=== PATIENT | male | born 1985 | race African-American/Black ===

== ENCOUNTER 2017-01-18 23:50 | Emergency (ER) | payer MEDICAID ==
[2017-01-19 00:25] LABS: APPEARANCE CLEAR (CLEAR); BILIRUBIN NEGATIVE (NEGATIVE); COLOR YELLOW (YELLOW); GLUCOSE NEGATIVE (NEGATIVE); KETONE NEGATIVE (NEGATIVE); LEUKOCYTE ESTERASE NEGATIVE (NEGATIVE); NITRITE NEGATIVE (NEGATIVE); PROTEIN NEGATIVE (NEGATIVE); SPECIFIC GRAVITY 1.015 (1.005-1.020); UROBILINOGEN NORMAL (NORMAL)
[2017-01-19 00:30] LABS: BASOPHILS 0.5 % (0-2); EOSINOPHILS 2.8 % (0-7); HEMATOCRIT 39.2 % (42.0-54.0); HEMOGLOBIN 13.8 g/dL (13.5-17.5); IMMATURE GRANULOCYTES 0.2 % (0-5); LYMPHOCYTES 29.4 % (15-50); MCH 33.7 pg (26.0-34.0); MCHC 35.2 g/dL (31.0-37.0); MCV 95.6 fL (80.0-100.0); MEAN PLATELET VOLUME 8.9 fL (7.4-10.4); MONOCYTES 7.3 % (2-11); NEUTROPHILS 59.8 % (40-80); PLATELET COUNT 236 10x3/uL (130-400); RDW 12.9 % (11.5-14.5); WBC 8.1 10x3/uL (4.8-10.8)
[2017-01-19 00:43] LABS: ALBUMIN 3.7 g/dL (3.4-5.0); ALKALINE PHOSPHATASE 96 U/L (46-116); ALT (SGPT) 42 U/L (10-68); BILIRUBIN - TOTAL 0.46 mg/dL (0.2-1.3); CALC OSMOLALITY 282 mosm/kg (275-300); CALCIUM 8.8 mg/dL (8.5-10.1); CARBON DIOXIDE 30.1 mmol/L (21.0-32.0); CHLORIDE - SERUM 103 mmol/L (98-107); CREATININE - SERUM 1.1 mg/dL (0.6-1.3); GLUCOSE 123 mg/dL (74-106); POTASSIUM - SERUM 3.6 mmol/L (3.5-5.1); PROTEIN - SERUM 7.6 g/dL (6.4-8.2); SODIUM 141 mmol/L (136-145); UREA NITROGEN 16 mg/dL (7-18); eGFR NON AFRICAN AMERICAN 83 mL/min (90-120)
== END 2017-01-19 03:10 | disposition home or self-care (01) ==
LOC: D.ER 23:50
PROVIDERS: Emergency Medicine
DX: M79.89 Other specified soft tissue disorders (principal); F17.200 Nicotine dependence, unspecified, uncomplicated

== ENCOUNTER 2017-02-16 16:48 | Emergency (ER) | payer MEDICAID | END 2017-02-16 21:52 | disposition home or self-care (01) | LOC: D.ER 16:48 | DX: J20.9 Acute bronchitis, unspecified (principal); F17.200 Nicotine dependence, unspecified, uncomplicated ==

== ENCOUNTER 2017-11-24 11:30 | Emergency (ER) | payer MEDICAID | END 2017-11-24 14:25 | disposition home or self-care (01) | LOC: D.ER 11:30 | DX: K04.7 Periapical abscess without sinus (principal); K08.89 Other specified disorders of teeth and supporting structures ==

== ENCOUNTER 2018-08-10 09:48 | Emergency (ER) | payer MEDICAID ==
[~2018-08-10] VITALS: Ht 188 cm; Wt 90.7 kg
[2018-08-10 09:52] VITALS: Ht 188 cm; Wt 90.7 kg
[2018-08-10] MEDS ORDERED: MEDROL DOSE PACK4 MG PO (11:48)
[2018-08-10] MEDS ORDERED: EC-NAPROSYN500 MG PO (11:48)
[2018-08-10] MEDS ORDERED: CYCLOBENZAPRINE10 MG PO (11:48)
[2018-08-10 12:10] VITALS: BP 140/80
== END 2018-08-10 12:07 | disposition home or self-care (01) ==
LOC: D.ER 09:48
DX: S16.1XXA Strain of muscle, fascia and tendon at neck level, initial encounter (principal); X58.XXXA Exposure to other specified factors, initial encounter; Y93.89 Activity, other specified; Y92.89 Other specified places as the place of occurrence of the external cause; M62.838 Other muscle spasm

== ENCOUNTER 2019-04-30 20:21 | Emergency (ER) | payer SELFPAY ==
[~2019-04-30] VITALS: Ht 188 cm; Wt 93.2 kg
[~2019-04-30 20:21] MED LIST: CYCLOBENZAPRINE10 MG PO; EC-NAPROSYN500 MG PO; MEDROL DOSE PACK4 MG PO
[2019-04-30 20:30] VITALS: Ht 188 cm; Wt 93.2 kg
[2019-04-30] MEDS ORDERED: AUGMENTIN 875-11 TAB PO (22:57)
[2019-04-30] MEDS ORDERED: TYLENOL W/CODEI1 TAB PO (22:57)
[2019-04-30 23:40] VITALS: BP 125/78
== END 2019-04-30 23:40 | disposition home or self-care (01) ==
LOC: D.ER 20:21
DX: K02.9 Dental caries, unspecified (principal); H66.92 Otitis media, unspecified, left ear

== ENCOUNTER 2019-07-27 16:01 | Emergency (ER) | payer OTHER ==
[~2019-07-27] VITALS: Ht 188 cm; Wt 93.6 kg
[~2019-07-27 16:01] MED LIST changes: +AUGMENTIN 875-11 TAB PO; +TYLENOL W/CODEI1 TAB PO
[2019-07-27 16:40] VITALS: Ht 188 cm; Wt 93.6 kg
[2019-07-27 19:15] VITALS: BP 106/64
== END 2019-07-27 19:15 | disposition home or self-care (01) ==
LOC: D.ER 16:01
DX: T16.1XXA Foreign body in right ear, initial encounter (principal); X58.XXXA Exposure to other specified factors, initial encounter; Y93.9 Activity, unspecified; Y92.9 Unspecified place or not applicable